=== PATIENT | male | born 1975 | race Two or more races ===

== ENCOUNTER 2023-04-26 10:46 | Emergency (ER) | payer MEDICAID ==
[~2023-04-26] VITALS: Ht 177.8 cm; Wt 106.7 kg
[2023-04-26 11:08] VITALS: BP 136/83; PULSE 87; RESP 18; TEMP 97.5; O2SAT 97
[2023-04-26] MEDS ORDERED: IBUP-1456 PO (11:38)
== END 2023-04-26 11:44 | disposition home or self-care (01) ==
LOC: ER 10:46
DX: S20.219A Contusion of unspecified front wall of thorax, initial encounter (principal); Z79.1 Long term (current) use of non-steroidal anti-inflammatories (NSAID); V49.9XXA Car occupant (driver) (passenger) injured in unspecified traffic accident, initial encounter; Y93.89 Activity, other specified; Y92.410 Unspecified street and highway as the place of occurrence of the external cause; Y99.8 Other external cause status
CPT/HCPCS: 71046